=== PATIENT | female | born 1950 | race Caucasian/White ===

== ENCOUNTER 2023-07-02 09:53 | Emergency (ER) | payer MEDICARE, BC ==
[~2023-07-02] VITALS: Ht 160 cm; Wt 79.0 kg
[2023-07-02 10:20] VITALS: BP 128/66; PULSE 84; RESP 18; O2SAT 100
[2023-07-02] MEDS ORDERED: LIDO700A47 TOP (12:36)
[2023-07-02 12:45] VITALS: TEMP 97.6
== END 2023-07-02 12:46 | disposition home or self-care (01) ==
LOC: ER 09:54
DX: R07.81 Pleurodynia (principal); Z90.710 Acquired absence of both cervix and uterus; Z88.2 Allergy status to sulfonamides
CPT/HCPCS: 71045; 99283